=== PATIENT | female | born 1960 | race Caucasian/White ===

== ENCOUNTER 2018-01-07 10:38 | Emergency (ER) | payer OTHER ==
[2018-01-07] MEDS ORDERED: Ketorolac INJ* 60 MG/2 ML VIAL IM ONE (11:10)
[2018-01-07 11:22] VITALS: BP 187/103
--- NOTE | 2018-01-07 12:02 | RAD ---
HISTORY: back pain COMPARISONS: None VIEWS: 5 , Frontal, lateral, coned-down lateral sacral, and bilateral oblique views of the lumbar spine. FINDINGS: ALIGNMENT: There is a dextroscoliotic curvature of the spine. VERTEBRAL BODIES: The vertebral body heights are normal. The interpedicular distances are normal. JOINTS: There is facet hypertrophic change along the lower lumbar spine, most pronounced along the lower lumbar spine.. INTERVERTEBRAL DISCS: There is diffuse loss of intervertebral disc height. SOFT TISSUE: Unremarkable. OTHER: The pelvis is unremarkable. The lung bases are clear. IMPRESSION: SCOLIOSIS. DEGENERATIVE DISC DISEASE AND OSTEOARTHRITIS, MOST PRONOUNCED ALONG THE LOWER LUMBAR SPINE.
--- NOTE | 2018-01-07 12:17 | UC ---
Back Pain HPI - HPI Summary HPI Summary: Patient complains of sudden onset left lower back pain after lifting a box at work today. Denies loss of sensation or function, urinary retention, incontinence. Patient ambulatory. Radical history is none. - History of Current Complaint Chief Complaint: UCBackPain Stated Complaint: BACK INJURY Time Seen by Provider: 01/07/18 11:03 Hx Obtained From: Patient Onset/Duration: Sudden Onset, Lasting Hours Timing: Constant Severity Initially: Mild Severity Currently: Mild Pain Intensity: 3 Pain Scale Used: 0-10 Numeric Character: Aching Aggravating Factor(s): Movement Alleviating Factor(s): Position Associated Signs And Symptoms: Positive: Negative - Allergies/Home Medications Allergies/Adverse Reactions: Allergies Allergy/AdvReac Type Severity Reaction Status Date / Time amoxicillin Allergy Hives Verified 01/07/18 10:58 Home Medications: Home Medications Calcium Phosphate Trib/Vit D3 [Calcium + Vitamin D3 Gummies] 1 tab 01/07/18 [ History] PMH/Surg Hx/FS Hx/Imm Hx - Surgical History Surgical History: None - Family History Known Family History: Positive: None - Social History Alcohol Use: None Substance Use Type: None Smoking Status (MU): Never Smoked Tobacco Review of Systems Constitutional: Negative Skin: Negative Eyes: Negative ENT: Negative Respiratory: Negative Cardiovascular: Negative Gastrointestinal: Negative Genitourinary: Negative Motor: Negative Neurovascular: Negative Musculoskeletal: Other: Neurological: Negative Psychological: Negative All Other Systems Reviewed And Are Negative: Yes Physical Exam - Summary Physical Exam Summary: PMS intact on bilateral lower extremities. No tenderness to palpation of lower back. Triage Information Reviewed: Yes Appearance: Well-Appearing Vital Signs: Initial Vital Signs Temp 98.3 F 01/07/18 10:54 Pulse 94 01/07/18 10:54 Resp 18 01/07/18 10:54 BP 181/107 01/07/18 10:54 Pulse Ox 100 01/07/18 10:54 Vital Signs Reviewed: Yes Eye Exam: Normal Neck exam: Normal Respiratory Exam: Normal Cardiovascular Exam: Normal Abdominal Exam: Normal Musculoskeletal Exam: Normal Neurological Exam: Normal Psychological Exam: Normal Skin Exam: Normal Back Pain Course/Dx - Course Course Of Treatment: Patient complains of sudden onset left lower back pain after lifting a box at work today. Denies loss of sensation or function, urinary retention, incontinence. Patient ambulatory. Med history is none. Physical exam:PMS intact on bilateral lower extremities. No tenderness to palpation of lower back. Elevated BP, vital signs otherwise normal. BP improved after treatment but still higher than baseline. Patient advised to follow-up with primary care. - Differential Dx/Diagnosis Provider Diagnoses: muscle spasm Discharge - Sign-Out/Discharge Documenting (check all that apply): Patient Departure All imaging exams completed and their final reports reviewed: Yes - degenerative disc disease and osteoarthritis of lumbar spine. No acute bony injury - Discharge Plan Condition: Stable Disposition: HOME Prescriptions: Cyclobenzaprine TAB* [Flexeril 10 MG TAB*] 10 mg PO TID PRN 3 Days #10 tab PRN Reason: Pain Patient Education Materials: Muscle Spasm (ED) Referrals: Darell Garcia MD [Primary Care Provider] - Darell Hathaway MD [Medical Doctor] - Additional Instructions: Take ibuprofen for back pain the next two days. Take flexeril as directed. If symptoms do not improve follow-up with orthopedics Dr. Sewell. Follow-up with primary care for further evaluation of elevated blood pressure. - Billing Disposition and Condition Condition: STABLE Disposition: Home
== END 2018-01-07 12:47 | disposition home or self-care (01) ==
LOC: UCEAST 10:38
DX: M62.830 Muscle spasm of back (principal); M41.9 Scoliosis, unspecified; M51.37 Other intervertebral disc degeneration, lumbosacral region; Z88.0 Allergy status to penicillin
CPT/HCPCS: 72110; 96372; 99212; G0463; J1885